=== PATIENT | female | born 1955 | race Caucasian/White ===

== ENCOUNTER 2016-10-11 14:45 | Outpatient (CLI) | payer OTHER ==
[~2016-10-11] VITALS: Ht 152.4 cm; Wt 82.1 kg
[~2016-10-11 14:45] MED LIST: ESTR1TAB27 PO; HYOS0.1216 PO; LISI10TA2 PO; NITR100C3 PO; PHEN200T27 PO
[2016-10-11] MEDS ORDERED: LOVA20TA2 PO (15:11)
[2016-10-11] MEDS ORDERED: LOSA1TAB69 PO (15:14)
[2016-10-11 15:18] VITALS: BP 152/99
[2016-10-11 15:45] LABS: BASOPHILS # (AUTO) 0.1 10^3/uL (0.0-0.1); BASOPHILS % (AUTO) 1 % (0-10); EOSINOPHILS # (AUTO) 0.1 10^3/uL (0.0-0.3); EOSINOPHILS % (AUTO) 1 % (0-10); LYMPHOCYTES # (AUTO) 1.6 X 10^3 (1.0-4.0); LYMPHOCYTES % (AUTO) 21 % (12-44); MEAN CORPUSCULAR HEMOGLOBIN 29 PG (25-34); MEAN CORPUSCULAR HGB CONC 33 G/DL (32-36); MEAN CORPUSCULAR VOLUME 87 FL (80-99); MEAN PLATELET VOLUME 9.7 FL (7.4-10.4); MONOCYTES # (AUTO) 0.7 X 10^3 (0.0-1.0); MONOCYTES % (AUTO) 9 % (0-12); NEUTROPHILS # (AUTO) 5.4 X 10^3 (1.8-7.8); NEUTROPHILS % (AUTO) 69 % (42-75); PLATELET COUNT 344 10^3/uL (130-400); RED BLOOD COUNT 4.86 10^6/uL (4.35-5.85); RED CELL DISTRIBUTION WIDTH 14.2 % (10.0-14.5); WHITE BLOOD COUNT 7.9 10^3/uL (4.3-11.0)
[2016-10-11 15:48] LABS: BILIRUBIN,URINE NEGATIVE (NEGATIVE); KETONES,URINE NEGATIVE (NEGATIVE); LEUKOCYTE ESTERASE ,URINE NEGATIVE (NEGATIVE); NITRITE,URINE NEGATIVE (NEGATIVE); PH,URINE 6 (5-9); PROTEIN,URINE NEGATIVE (NEGATIVE); UROBILINOGEN,URINE NORMAL (NORMAL)
[2016-10-11 15:57] LABS: WBC,URINE RARE /HPF
[2016-10-11 16:07] LABS: ALANINE AMINOTRANSFERASE 15 U/L (0-55); ANION GAP 9 MMOL/L (5-14); ASPARTATE AMINO TRANSFERASE 16 U/L (5-34); BILIRUBIN,TOTAL 0.2 MG/DL (0.1-1.0); BLOOD UREA NITROGEN 14 MG/DL (7-18); BUN/CREATININE RATIO 19; CALCIUM 9.9 MG/DL (8.5-10.1); CARBON DIOXIDE 28 MMOL/L (21-32); CHLORIDE 103 MMOL/L (98-107); CREATININE SERUM 0.72 MG/DL (0.60-1.30); GFR ESTIMATED > 60; GLUCOSE 88 MG/DL (70-105); SODIUM 140 MMOL/L (135-145); TOTAL PROTEIN 6.7 GM/DL (6.4-8.2)
== END 2016-10-11 15:00 ==
LOC: PREOP 14:45
PROVIDERS: ATTEND Urology
DX: Z01.812 Encounter for preprocedural laboratory examination (principal); D41.4 Neoplasm of uncertain behavior of bladder
CPT/HCPCS: 36415; 80053; 81000; 85025; 87081

== ENCOUNTER 2016-10-16 06:00 | Day surgery (SDC) | payer OTHER ==
[~2016-10-16] VITALS: Ht 152.4 cm; Wt 82.1 kg
[~2016-10-16 06:00] MED LIST changes: +LOSA1TAB20 PO; +LOVA20TA2 PO
[2016-10-16] MEDS ORDERED: NS IV 500 ML 500 ML IV PRN (06:42)
[2016-10-16] MEDS ORDERED: LACTATED RINGERS 1,000 ML IV PRN ×2 (06:43→06:44)
[2016-10-16] MEDS ORDERED: LIDOCAINE PF 2% 5 ML (XYLOCAINE) VIAL ONE (06:55)
[2016-10-16] MEDS ORDERED: LIDOCAINE JELLY 2% (XYLOCAINE) 5 ML TUBE ONE (06:55)
[2016-10-16] MEDS ORDERED: LACTATED RINGERS 1,000 ML IV ONE (06:55)
[2016-10-16] MEDS ORDERED: ROCURONIUM 50 MG/5 ML (ZEMURON) VIAL IV ONE (06:55)
[2016-10-16] MEDS ORDERED: fentaNYL INJECTION 100 MCG/2 ML AMP ONE (06:55)
[2016-10-16] MEDS ORDERED: ONDANSETRON 4 MG/2 ML (SDV) Z0FRAN ONE (06:55)
[2016-10-16] MEDS ORDERED: proPOfol 200 MG/20 ML (DIPRIVAN) VIAL IV ONE (06:55)
[2016-10-16] MEDS ORDERED: MIDAZOLAM 2 MG/2 ML (VERSED) VIAL ONE (06:56)
[2016-10-16] MEDS ORDERED: cefTRIAXone 1 GM (ROCEPHIN) VIAL ONE (07:02)
[2016-10-16] MEDS ORDERED: NS (IVPB) 50 ML ONE (07:03)
[2016-10-16 07:05] VITALS: BP 149/93
--- NOTE | 2016-10-16 07:08 | Progress Note-Pre Operative ---
Pre-Operative Progress Note H&P Reviewed The H&P was reviewed, patient examined and no changes noted. Date Seen by Provider: Oct 16, 2016 Time Seen by Provider: 07:08 Date H&P Reviewed: Oct 16, 2016 Time H&P Reviewed: 07:08 Pre-Operative Diagnosis: BLADDER TUMOR (MEDIUM) KAYLEY SCHNEIDER MD Oct 16, 2016 7:08 am
--- NOTE | 2016-10-16 07:09 | Progress Note-Post Operative ---
Post-Operative Progess Note Surgeon (s)/Firmware Developer (s) Surgeon KAYLEY SCHNEIDER MD Firmware Developer: N/A Pre-Operative Diagnosis BLADDER TUMOR (MEDIUM) Post-Operative Diagnosis SAME Procedure & Operative Findings Date of Procedure 10/16/16 Procedure Performed/Findings TURBT Anesthesia Type GENERAL Estimated Blood Loss Estimated blood loss (mL): NEGLIGIBLE Specimens/Packing Specimens Removed BLADDER TUMOR CHIPS AND BASE Packing: N/A KAYLEY SCHNEIDER MD Oct 16, 2016 7:09 am
--- NOTE | 2016-10-16 07:10 | Discharge Inst-Urology ---
Discharge Inst-Urology Discharge Medications New, Converted, or Re-newed RX: RX on Chart Patient Instructions/Follow Up Plan Please make appointment to been seen in office in 2 weeks. Increase oral fluids for 48 hours and then as needed. Diet and Activity as tolerated. If questions or concerns contact your physician Or seek help at emergency department. KAYLEY SCHNEIDER MD Oct 16, 2016 7:10 am
[2016-10-16] MEDS ORDERED: MEPERIDINE (DEMEROL) INJ 50 MG/ML IVP PRN (07:15)
[2016-10-16] MEDS ORDERED: morphine INJ 10 MG/ML 1ML (SYR OR VIAL) IVP PRN (07:15)
[2016-10-16] MEDS ORDERED: cefTRIAXone 1 GM/NS 50 ML IVPB IV ONE ×2 (07:15)
[2016-10-16] MEDS ORDERED: ONDANSETRON 4 MG/2 ML (SDV) Z0FRAN IVP PRN (07:15)
[2016-10-16] MEDS ORDERED: NEOSTIGMINE (BLOXIVERZ ) 1 MG/1ML 10 ML VIAL ONE (07:50)
[2016-10-16] MEDS ORDERED: GLYCOPYRROLATE 0.2 MG/ML (ROBINUL) 2 ML VIAL ONE (07:50)
[2016-10-16] MEDS ORDERED: SEVOFLURANE (ULTANE) 15 ML INHAL SOLN ONE (07:50)
[2016-10-16 08:45] VITALS: BP 136/80
[2016-10-16] MEDS ORDERED: NITR-65 PO (08:51)
[2016-10-16] MEDS ORDERED: PHEN-640 PO (08:51)
[2016-10-16 09:15] VITALS: BP 133/83
[2016-10-16 09:45] VITALS: BP 138/88
[2016-10-16 09:47] VITALS: BP 138/88
--- NOTE | 2016-10-16 11:08 | OPERATIVE REPORT ---
DATE OF SERVICE: 10/16/2016 PREOPERATIVE DIAGNOSIS: Medium size bladder tumor. POSTOPERATIVE DIAGNOSIS: Medium size bladder tumor. OPERATION PERFORMED: Transurethral resection of bladder tumor. SURGEON: Umberto Schneider MD ANESTHESIA: General. COMPLICATIONS: None. PROCEDURE: Under satisfactory general anesthesia, the patient in left lithotomy position, genitalia were prepped and draped in the usual sterile fashion. A 27-Libyan Ruiz resectoscope was inserted into the bladder, I again visualized a single medium size bladder tumor sitting on the left side above and lateral to the left ureteral orifice. It was completely resected and a portion of the base sent separately. Hemostasis was complete, no need for catheter. There was good efflux bilaterally and clear on both sides. No further bladder tumor visualized. The bladder was emptied. The patient tolerated the procedure and anesthesia well, was sent to the recovery room in stable condition. ESTIMATED BLOOD LOSS: Negligible. Job ID: [id number] DocumentID: [id number] Dictated Date: 10/16/2016 07:57:42 Grounds And Nursery Specialist Date: 10/16/2016 11:07:08 Dictated By: UMBERTO SCHNEIDER MD
== END 2016-10-16 09:47 | disposition home or self-care (01) ==
LOC: SDC 06:00
PROVIDERS: ATTEND Urology
DX: C67.9 Malignant neoplasm of bladder, unspecified (principal); I10 Essential (primary) hypertension; Z79.899 Other long term (current) drug therapy
CPT/HCPCS: 88305